=== PATIENT | female | born 1965 | race Caucasian/White ===

== ENCOUNTER 2017-03-07 07:22 | Emergency (ER) | payer OTHER ==
[~2017-03-07] VITALS: Ht 180.3 cm; Wt 92.7 kg
[2017-03-07] MEDS ORDERED: ONDANSETRON 2MG/ML, 2ML IVPush ONE (08:00)
[2017-03-07] MEDS ORDERED: SODIUM CHLORIDE 0.9% 1,000ML IVBOLUS ONE (08:00)
[2017-03-07] MEDS ORDERED: ONDANSETRON 2MG/ML, 2ML ONE (08:22)
[2017-03-07 08:30] LABS: BLOOD UREA NITROGEN 9 mg/dL (7-18)
[2017-03-07 08:34] LABS: ASPARTATE AMINO TRANSFERASE 19 U/L (15-37)
[2017-03-07] MEDS ORDERED: OMNIPAQUE 350 MG/ML, 100ML BOTTLE ONE (09:08)
[2017-03-07] MEDS ORDERED: POTASSIUM CHLORIDE 20 MEQ TAB.ER.PRT PO ONE (09:30)
[2017-03-07] MEDS ORDERED: POTASSIUM CHLORIDE 20 MEQ TAB.ER.PRT ONE (09:52)
[2017-03-07 10:14] VITALS: BP 149/74
== END 2017-03-07 10:53 | disposition home or self-care (01) ==
LOC: ED 08:08
DX: R10.31 Right lower quadrant pain (principal); R10.32 Left lower quadrant pain; R11.0 Nausea; R19.7 Diarrhea, unspecified; R51 Headache; R53.83 Other fatigue
CPT/HCPCS: 36415; 74177; 80053; 81001; 85025; 93005; 96361; 96374; 99285; J2405; J7030; Q9967